=== PATIENT | female | born 1985 | race Caucasian/White ===

== ENCOUNTER 2024-02-07 09:39 | Emergency (ER) | payer BC, SELFPAY ==
[2024-02-07 10:16] VITALS: BP 109/72
[2024-02-07 13:47] VITALS: BMI 30.3
[2024-02-07] MEDS: TYLENOL 1000 MG PO (13:54)
[2024-02-07] MEDS: TORADOL 30 MG IM (13:55)
[2024-02-07 14:01] VITALS: BP 106/63
[2024-02-07 14:24] LABS: COVID-19 Antigen Negative (Negative)
--- NOTE | 2024-02-07 14:26 | ED.GENMED ---
History of Present Illness
General
Chief Complaint: Back Pain
Source: patient
Exam Limitations: none
Time Seen by Provider: 02/07/24 13:00
Nursing documentation reviewed up to this point in time: agreed with
History of Present Illness
History of Present Illness:
pt is a 38 y/o F
no chronic medical problems
here with 2 days cough, sore throat, bodyaches, headache, low grade temp
then today was coughing whlie walking down the steps and felt pain in her lower back
it stays across her lumbar spine
no incontinence, numbness/tinglnig/weakness
nothing taken for pain today
felt her back locked up so she was brought in by ambulance
pt'/s daughter has brain tumor and is at [facility] now, she has been sleeping there and not really sleeping well
she has never really had chronic back problems before
no urinary symptoms, dysuria, hematuria, frequency
Past History
Past History
ED Past Medical History: None
ED Past Surgical History: Gynecological
Social History
Tobacco: Non-smoker
Review of Systems
Review of Systems
Allergies reviewed?: Yes
All Other Systems: Not applicable
Phy Exam
Physical Exam
Physical Exam:
GENERAL: Alert , in no apparent distress
EYE: pupils equal and reactive
NECK: Supple
ENT: b/l TM s clear, pharynx erythematous but no tonsillar hypertrophy or exudates
CARDIAC: Regular rate and rhythm, no edema
LUNGS: Clear breath sounds bilaterally, no acute respiratory distress, no wheezes/rales/rhonchi, occ cough
ABDOMEN: Soft, without focal tenderness, no r/g, no cvat, normal bowel sounds
NEUROLOGICAL: Alert and oriented, no focal neuro deficits
back: no midline tenderness, pain and limited ROM/flexion
neg straight leg raise
no cva tenderness
SKIN: Warm and dry, skin intact.
MUSCULOSKELETAL: No edema, well perfused.
PSYCH: Normal and appropriate interaction.
Course
Orders/Labs/Results
Orders:
Orders
02/07/24 13:26
Acetaminophen [Tylenol] 1,000 mg PO NOW STA
Ketorolac [Toradol] 30 mg IM NOW STA
Lumbar Spine Complete, 4 View [CR Lumbar Spine Comp Min 4 Vw*] Urgent
Comment:
Reason For Exam: lowre back pain after coughing
02/07/24 13:28
CR Chest - 2 Views Urgent
Comment:
Reason For Exam: cough, fever
02/07/24 13:57
COVID-19 Antigen Urgent
Source: Nasal Swab
Influenza A+B Rapid Molecular Urgent
LUIZ Source: Nasal Swab
Specimen Description:
02/07/24 14:27
Cyclobenzaprine HCl [Flexeril] 10 mg PO NOW STA
Vital Signs
Initial and Last Documented VS:
Initial Vital Signs
Temp Pulse Resp Pulse Ox
36.8 C 107 16 98
02/07/24 10:13 02/07/24 10:13 02/07/24 10:13 02/07/24 10:13
Last Documented Vital Signs
Temp Pulse Resp BP Pulse Ox
37.6 C 69 18 106/79 99
02/07/24 15:31 02/07/24 15:31 02/07/24 15:31 02/07/24 15:31 02/07/24 15:31
MDM/Problems Addressed
Differential Diagnosis Includes:
flu, covid, pna, lumbar strain, compression fx
MDM/Problems Addressed:
38 y/o F
under a lot of stress, sherine bernabe temrinal brain tumor at [facility]
here with cough/sore throat x 2 days
coughed hard and felt pain in low back
nonradiating down legs
no weakness/numbness, incontiennce
able to walk but has pain with movement
some pain with flexion
neg straight leg raise
tender lower back paraspinal both sides
suspect lumbar strain
flu A+
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
cxr clear
d/c home with nsaids, muscle relaxants, heat
supportive care for flu
*Critical Care Note
Total Time (30-74mins, 75-104mins- exclusive of procedures): Not Applicable
ED Attending Note
-
Portions of this chart may have been created with voice recognition software.� Occasional wrong word or��sound alike� substitutions may have occurred due to the inherent limitations of voice recognition software.
Discharge Plan
Departure
Patient Disposition: Home (Routine Discharge)
Date of Disposition: 02/07/24
Time of Disposition: 15:03
Patient with high blood pressure during this ER visit?: No
Condition: Fair
Covid-19: Negative COVID-19
Discharge Problem:
Influenza A
Instructions: Flu in adults - Discharge instructions, Low back pain - Discharge instructions
Prescriptions:
New
cyclobenzaprine 10 mg tablet
10 mg PO HS PRN (Reason: muscle spasm) Qty: 10 0RF
No Action
prenat.vits,matthew,nse-jucg-diywj [ Vitamin] 1 TAB tablet
1 tab PO DAILY
ibuprofen 600 MG tablet
600 mg PO Q4HPRN PRN (Reason: cramps) 0RF
simethicone [Gas Relief 80 (simethicone)] 80 MG tablet,chewable
80 mg PO TIDPRN PRN (Reason: flatulence) Qty: 20 0RF
Referrals:
Georges Vasquez MD [Family Provider] - Follow up in 2-3 days
Activity Restrictions/Additional Instructions:
You tested positive for influenza. Your back pain is probably from pulled muscles from coughing. Your xray shows mild degenerative changes in your lower spine but no fractures.
your chest xray was clear
Take ibuprofen every 8 hours, Tylenol every 6 hours and you can try muscle relaxer at night to help you sleep. Heat off-and-on as needed. Return for any significant symptoms like leg weakness, leg numbness, incontinence etc. I would expect you to
have flulike symptoms for the next 3 to 5 days. Stay hydrated
Interventions
Interventions:
*Risk Screen - Suicide Last Done: 02/07/24 13:48
*General Assessment Last Done: 02/07/24 10:13
*Neglect/Abuse Screening Last Done: 02/07/24 13:48
ED- Fall Risk Assessment Last Done: 02/07/24 15:46
*ED COVID-19 Vaccine History Last Done: 02/07/24 13:48
*Nursing Disposition Last Done: 02/07/24 15:46
ED-Musculoskeletal Assessment Last Done: 02/07/24 14:02
Discharge Date and Time
Discharge Date/Time: 02/07/24 15:46
Print Language: [id number]
[2024-02-07] MEDS: FLEXERIL 10 MG PO (14:40)
[2024-02-07 15:31] VITALS: BP 106/79
== END 2024-02-07 15:46 | disposition home or self-care (01) ==
LOC: EMR 09:39
PROVIDERS: Physician Assistant; EMERGENCY PHYSICIAN Emergency Medicine; FAMILY PHYSICIAN Family Medicine
DX: J10.1 Influenza due to other identified influenza virus with other respiratory manifestations (principal)
CPT/HCPCS: 99283; 96372; 71046; 72110; 87502; 87811